=== PATIENT | female | born 1965 | race Caucasian/White ===

== ENCOUNTER 2019-10-10 14:55 | Emergency (ER) | payer OTHER, SELFPAY ==
[2019-10-10 15:14] VITALS: BP 180/93; PULSE 80; RESP 16; TEMP 36.7; O2SAT 97
--- NOTE | 2019-10-10 15:31 | ED.GIBLEED ---
HPI - GI Bleed General Chief complaint: GI Bleed Stated complaint: blood in stool Source: patient Mode of arrival: ambulatory Limitations: no limitations History of Present Illness HPI Narrative: Pt presents to ED with complaints of 3 bloody stools. She states that last night she had some cramping, became nauseated, and had diarrhea. She had several very loose stools. she states she didnt look at the stool last night, but today noticed blood. She has not had this before, and otherwise feels fine. NO lightheaddeness, dizzness, nearsyncopy. no abdominal pain. no vomiting. She does get crampy in abdomen right before a BM, but not significant pain at all. She has not had fevers. MD complaint: gross hematochezia Onset (ago): day(s) Pain Consistency: other (cramping when she has to use toliet, otherwise no pain) Severity: mild Exacerbating factors: none Associated symptoms: denies other symptoms Treatments Prior to Arrival: none Related Data Home Medications Medication Instructions Recorded Confirmed bupropion HCl 150 mg PO DAILY 10/10/19 10/10/19 escitalopram oxalate 10 mg PO DAILY 10/10/19 10/10/19 estradiol 1 mg PO DAILY 10/10/19 10/10/19 lisinopril 20 mg PO DAILY 10/10/19 10/10/19 norethindrone (contraceptive) 0.35 mg PO DAILY 10/10/19 10/10/19 [Melissa] simvastatin 20 mg PO DAILY 10/10/19 10/10/19 Allergies Allergy/AdvReac Type Severity Reaction Status Date / Time No Known Allergies Allergy Unverified 02/19/18 16:22 Review of Systems Review of Systems: All systems reviewed & are unremarkable except as noted in HPI and below Constitutional: Constitutional: Reports as per HPI and Reports no additional constitutional complaints Eyes: Eyes: Reports as per HPI and Reports no additional eye complaints ENT: Reports system reviewed and no additional complaints, except as documented Cardiovascular: Cardiovascular: Reports no additional cardiovascular complaints Respiratory: Respiratory: Reports no additional respiratory complaints Gastrointestinal: Gastrointestinal: Reports no additional gastrointestinal complaints Musculoskeletal: Musculoskeletal: Reports no additional musculoskeletal complaints Neurologic: Reports system reviewed and no additional complaints, except as documented Psychiatric: Psychiatric: Reports no additional psychiatric complaints Endocrine: Endocrine: Reports no additional endocrine complaints Hematologic/Lymphatic: Hematologic/Lymphatic: Reports no additional hematologic/lymphatic complaints Allergic/Immunologic: Allergic/Immunologic: Reports no additional allergic/immunologic complaints PMFSH Past Medical History Medical History (Updated 10/10/19 @ 16:59 by Linda Veloz MD) Hypertension Exam Const: General: no acute distress and alert Nutritional Appearance: well nourished and obese Orientation/consciousness: patient oriented x3 HENMT: Head: normal to inspection Mouth: Yes Normal oral and palatal mucosa present and Yes moist mucous membranes Teeth and gingiva: dentition normal Eyes: Conjunctivae: conjunctivae normal Pupils: Equal, round and reactive pupils present Neck: Neck: normal visual inspection Chest: Chest palpation & inspection: normal inspection of the chest Resp: Effort & Inspection: normal respiratory effort Auscultation: clear to auscultation bilaterally Cardio: Rate: regular rate Rhythm: regular rhythm GI: GI Palp: Yes Soft to palpation, No Tenderness to palpation present (GI), No Guarding due to palpation present (GI), No Rigid due to palpation, No Hernia present, No Palpable mass present and No Rebound tenderness present Percussion: Yes normal to percussion Auscultation: normal bowel sounds Other: rectal vault has scant bloody discharge, no palp hemmroids, no fissue. external exam nl : General: Yes no CVA tenderness Back/Spine/Pelvis: Back: no CVA tenderness Skin: General skin exam: normal color Rashes: no rashes Neuro: Ge
--- NOTE | 2019-10-10 15:47 | PC.NURSE ---
PT IS UNABLE TO GIVE STOOL SAMPLE AT THIS TIME
[2019-10-10 15:50] LABS: Basophils Absolute Auto 0.03 K/mm3 (0.00-0.10); Basophils Percent Auto 0.3 % (0.0-1.0); Eosinophils Absolute Auto 0.01 K/mm3 (0.02-0.50); Eosinophils Percent Auto 0.1 % (1.0-6.0); Hematocrit 38.8 % (35.0-49.0); Hemoglobin 12.7 g/dL (12.0-15.0); Immature Granulocyte Absolute 0.03 K/mm3 (0.00-0.00); Immature Granulocyte Percent A 0.3 % (0.0-0.0); Lymphocytes Absolute Auto 1.25 K/mm3 (1.10-4.50); Lymphocytes Percent Auto 13.9 % (18.0-42.0); Mean Corpuscular HGB Conc 32.7 g/dL (32.0-36.0); Mean Corpuscular Hemoglobin 29.7 pg (27.0-31.0); Mean Corpuscular Volume 90.7 fL (78.0-102.0); Mean Platelet Volume 9.1 fl (9.2-11.8); Monocytes Percent Auto 3.3 % (2.0-11.0); Neutrophils Absolute Auto 7.4 K/mm3 (1.7-7.2); Neutrophils Percent Auto 82.1 % (50.0-70.0); Platelet Count Result 288 K/mm3 (150-420); Red Blood Count 4.28 M/mm3 (4.20-5.40); Red Cell Distribution Width 12.8 % (11.6-14.4)
[2019-10-10 16:06] LABS: Occult Blood Positive (Negative)
[2019-10-10 16:12] LABS: Partial Thromboplastin Time 28.5 SEC (22.3-31.6); Prothrombin Time 10.2 Seconds (9.64-11.0)
[2019-10-10 16:13] LABS: Alanine Aminotransferase 17 U/L (14-59); Albumin Level 3.8 g/dL (3.4-5.0); Alkaline Phosphatase 71 U/L (46-116); Anion Gap 13.5 mmol/L (7-16); Aspartate Amino Transferase 12 U/L (15-37); Bilirubin Direct 0.1 mg/dL (0-0.2); Bilirubin,Total 0.3 mg/dL (0.00-1.00); Blood Urea Nitrogen 16 mg/dL (7-18); Calcium 8.6 mg/dL (8.5-10.1); Carbon Dioxide 27 mmol/L (21-32); Chloride 105 mmol/L (98-108); Estimated Glomerular Filt Rate > 60; Glucose 114 mg/dL (70-99); Lipase 68 U/L (73-393); Osmolality Calculated 296 mOsm/kg (285-295); Potassium 3.5 mmol/L (3.5-5.1); Sodium 142 mmol/L (136-145); Total Protein 7.7 g/dL (6.4-8.2)
[2019-10-10 17:28] VITALS: RESP 22
== END 2019-10-10 17:30 | disposition home or self-care (01) ==
PROVIDERS: Emergency Provider Emergency Medicine; PCP Physician Assistant
DX: K92.2 Gastrointestinal hemorrhage, unspecified (principal)
CPT/HCPCS: 36415; 80053; 82248; 82272; 83690; 85025; 85610; 85730; 87045; 87046; 87177; 87209; 87324; 87427; 99283; 99284

== ENCOUNTER 2021-06-03 19:57 | Emergency (ER) | payer BC, SELFPAY ==
[2021-06-03 20:00] VITALS: BP 144/76; PULSE 86; RESP 16; TEMP 36.8; O2SAT 99
--- NOTE | 2021-06-03 20:12 | ED.FALL ---
HPI - Fall General Chief Complaint: Wound/Laceration Stated Complaint: amb Time Seen by Provider: 06/03/21 20:00 Source: patient Mode of arrival: EMS Limitations: no limitations History of Present Illness HPI Narrative: 55-year-old woman brought to the emergency department today by EMS after she fell off a ladder, cutting her right arm. She states that she landed on her feet more less and has no other injuries. She lost her balance. She denies any preceding lightheadedness, chest pain, shortness of breath, palpitations. She does not recall her last tetanus shot. She denies any numbness, tingling or decreased range of motion in her right arm and hand. complaint: fall Onset (ago): hour(s) (1) Fall from: from height (distance) (6 ft) Place fall occurred: home Loss of consciousness: none Prolonged down time: no Symptoms prior to fall: none Context: other (Lost her balance while getting [employer] decorations down from a height.) Location of injury - extremities: Right: arm Severity: moderate Associated symptoms (after fall): denies Related Data Home Medications Medication Instructions Recorded Confirmed estradiol 1 mg PO DAILY 10/10/19 06/03/21 duloxetine 60 mg capsule,delayed 60 mg PO DAILY 08/20/20 release lisinopril 20 mg tablet 20 mg PO DAILY 08/20/20 06/03/21 Allergies Allergy/AdvReac Type Severity Reaction Status Date / Time Sulfa (Sulfonamide Allergy Unknown Unknown Verified 06/03/21 21:39 Antibiotics) Review of Systems Review of Systems: All systems reviewed & are unremarkable except as noted in HPI and below Constitutional: Constitutional: Denies chills and Denies fever(s) ENT: Denies nasal congestion and Denies sore throat Cardiovascular: Cardiovascular: Denies chest pain and Denies radiating jaw, neck or arm pain Respiratory: Respiratory: Denies cough and Denies dyspnea Gastrointestinal: Gastrointestinal: Denies diarrhea, Denies nausea and Denies vomiting Integumentary/Breasts: Skin/Breast: Denies pruritus, Denies erythema and Denies rash Neurologic: Denies vertigo, Denies dizziness, Denies syncope, Denies headache(s), Denies focal weakness and Denies weakness Hematologic/Lymphatic: Hematologic/Lymphatic: Denies easy bleeding and Denies easy bruising PMFSH Past Medical History Medical History (Updated 06/03/21 @ 21:46 by Uvaldo Beard MD) Anxiety and depression Hyperlipidemia Hypertension Vasculitis Surgical History Surgical History (Updated 06/03/21 @ 20:16 by Uvaldo Beard MD) History of pubovaginal sling Family History Family History Mother CHF (congestive heart failure) Hypertension Heart disease Grandparent Lung cancer Grandparent Alcoholism Hypertension Social History Social History Smoking status: Never smoker Alcohol intake: current Substance use: never Exam Const: General: healthy appearing and alert Orientation/consciousness: patient oriented x3 Limitations: no limitations Other: Mild acute distress. Resp: Effort & Inspection: normal respiratory effort and not labored Auscultation: clear to auscultation bilaterally, no rales, no rhonchi and no wheezes Cardio: Rate: regular rate Rhythm: regular rhythm Heart sounds: no murmurs Skin: General skin exam: normal color, no jaundice and no pallor Rashes: no rashes Other: 20 cm laceration across the volar right arm just distal to the antecubital fossa. Distal neurovascular exam is intact. Neuro: General: patient oriented x3, moves all extremities and CN's II-XI intact bilaterally Speech: normal speech Gait exam (Neuro): Normal gait present Extrem: General: normal to inspection and no clubbing, cyanosis or edema Psych: Appearance: grossly normal and well kempt Mental Status: mental status grossly normal Affect: normal affect Attitude: cooperative Thought content: Yes Normal th
[2021-06-03] MEDS: TETANUS,DIPHTHERIA,AC PERTUSSIS ADULT 0.5 ML (ADACEL) IM (20:21)
[2021-06-03] MEDS: LIDO 1%/EPINEPHRINE 1:100,000 20 ML VIAL INFILTRATE (21:19)
[2021-06-03] MEDS: NEOMYCIN/POLYMYXIN/BACITRACIN OINTMENT PACKET 4 PACKET TOPICAL (21:55)
[2021-06-03 22:08] VITALS: BP 146/84; PULSE 66; RESP 14; O2SAT 97
== END 2021-06-03 22:10 | disposition home or self-care (01) ==
PROVIDERS: Emergency Provider Emergency Medicine
DX: S41.111A Laceration without foreign body of right upper arm, initial encounter (principal); W11.XXXA Fall on and from ladder, initial encounter
CPT/HCPCS: 12005; 90471; 90715; 99283

== ENCOUNTER 2022-01-25 11:52 | Emergency (ER) | payer BC, SELFPAY ==
--- NOTE | 2022-01-25 11:57 | ED.FEMALEGU ---
HPI - Female Genitourinary General Chief complaint: Urogenital-Female Stated complaint: UTI SYMPTOMS Time Seen by Provider: 01/25/22 12:28 Source: patient and RN notes reviewed Mode of arrival: ambulatory Limitations: no limitations History of Present Illness HPI Narrative: 56-year-old female presents concern for ongoing urinary tract infection, she has been having burning, frequency. She reports symptoms started on Thursday, she had a virtual visit and was prescribed Macrobid. Reports she started taking that medication with very little relief to her symptoms. She reports the medication caused her to be nauseated, so she does not want to continue to take it, given that it is not helping her symptoms. She did not leave a urine sample at the time of the prescription and did not get a culture. She denies abdominal pain, back pain, bodies, chills, sweats, fever MD elicited complaint: UTI Related Data Home Medications Medication Instructions Recorded Confirmed estradiol 1 mg tablet 1 mg PO DAILY 10/10/19 06/03/21 duloxetine 60 mg capsule,delayed 60 mg PO DAILY 08/20/20 06/03/21 release lisinopril 20 mg tablet 20 mg PO DAILY 08/20/20 06/03/21 azathioprine 50 mg tablet mg 01/25/22 Allergies Allergy/AdvReac Type Severity Reaction Status Date / Time Sulfa (Sulfonamide Allergy Unknown Unknown Verified 01/25/22 12:06 Antibiotics) Review of Systems Review of Systems: CONSTITUTIONAL: Denies malaise, chills, sweats, or fever. CARDIOVASCULAR: Denies chest pain, palpitations, or edema. RESPIRATORY: Denies cough or dyspnea. GASTROINTESTINAL: Denies abdominal pain, nausea, vomiting, diarrhea GENITOURINARY: Reports dysuria, frequency. Denies urgency, suprapubic pressure. Denies flank pain or hematuria. SKIN: Denies rash or itching. MUSCULOSKELETAL: Denies back pain or myalgia. All systems reviewed & are unremarkable except as noted in HPI and below PMFSH Past Medical History Medical History (Updated 01/25/22 @ 12:33 by Altagracia Jean-Baptiste NP) Anxiety and depression Hyperlipidemia Hypertension Vasculitis Surgical History Surgical History (Updated 06/03/21 @ 20:16 by Uvaldo Beard MD) History of pubovaginal sling Family History Family History Mother CHF (congestive heart failure) Hypertension Heart disease Grandparent Lung cancer Grandparent Alcoholism Hypertension Social History Social History Smoking status: Never smoker Alcohol intake: current Substance use: never Comments At time of signature, agree with nursing past medical, surgical, social and family history. There is no relevant family history pertinent to the presenting complaint Exam Narrative: GENERAL: Well-appearing, well-nourished, and in no acute distress. HEAD: Normocephalic. EYES: PERRLA, conjunctivae clear. NECK: Supple. No lymphadenopathy CHEST: Clear to auscultation. No respiratory distress. HEART: Regular rate and rhythm. ABDOMEN: Soft, nontender upon palpation, nondistended, normal active bowel sounds, no palpable or pulsatile masses, no guarding. No CVA tenderness SKIN: Warm, dry, no rash. NEURO: Alert and oriented x3. PSYCH: Normal mood and affect Course Course Emergency Course: Patient is aware of diagnosis, understands and agrees to treatment plan. Anticipatory guidance given. Patient agrees to follow-up as directed and is aware of reasons to seek care at the emergency department. Portions of this record may have been created with voice recognition software Level of Care: Express Care Visit Vital Signs Vital signs: Reviewed. MDM - Female Genitourinary MDM Narrative Medical decision making narrative: Exam findings and UA show no acute concerns or changes; patient is non-toxic appearing and is in no distress. Patient is appropriate for outpatient treatment and follow-up. Differential Diagnosis Diff
[2022-01-25 12:02] VITALS: BP 127/89; PULSE 68; RESP 16; TEMP 37.4; O2SAT 100
== END 2022-01-25 12:46 | disposition home or self-care (01) ==
PROVIDERS: Emergency Provider Nurse Practitioner; PCP Physician Assistant
DX: R30.0 Dysuria (principal); R35.0 Frequency of micturition; E78.5 Hyperlipidemia, unspecified; I10 Essential (primary) hypertension
CPT/HCPCS: 81003; 87086; 99213; G0463

== ENCOUNTER 2023-12-06 18:10 | Emergency (ER) | payer OTHER, SELFPAY ==
[2023-12-06 18:10] VITALS: BP 123/80; PULSE 87; RESP 16; TEMP 36.1; O2SAT 95
--- NOTE | 2023-12-06 18:22 | ED.GENADULT ---
HPI - General Adult General Chief complaint: Wound/Laceration Stated complaint: left thumb laceration Source: patient Mode of arrival: ambulatory Limitations: no limitations History of Present Illness HPI narrative: 58-year-old white female cut her left thumb a flute grinder at home on the dorsal aspect of her proximal phalanx of her non dominant left thumb causing 2 cm laceration. Not lost any sensation or function in the thumb or hand. last tetanus shot was greater than 5 years ago she was given a Tdap in the ED. otherwise no other injuries denies any cough fever sore throat runny nose problems eating or drinking walking talking seeing or hearing nausea vomiting diarrhea other bleeding or bruising lumps or bumps or swelling or any other injuries. Related Data Home Medications Medication Instructions Recorded Confirmed duloxetine 60 mg capsule,delayed 120 mg PO DAILY 08/20/20 12/06/23 release lisinopril 20 mg tablet 20 mg PO DAILY 08/20/20 12/06/23 azathioprine 50 mg tablet 100 mg PO BID 01/25/22 12/06/23 Allergies Allergy/AdvReac Type Severity Reaction Status Date / Time Sulfa (Sulfonamide Allergy Unknown Unknown Verified 12/06/23 18:21 Antibiotics) Review of Systems Review of Systems: All systems reviewed & are unremarkable except as noted in HPI and below PMFSH Past Medical History Medical History (Updated 12/06/23 @ 19:12 by Johnathan Tom MD) Anxiety and depression Hyperlipidemia Hypertension Vasculitis Surgical History Surgical History (Updated 06/03/21 @ 20:16 by Uvaldo BeardMD) History of pubovaginal sling Family History Family History Mother CHF (congestive heart failure) Hypertension Heart disease Grandparent Lung cancer Grandparent Alcoholism Hypertension Social History Social History Smoking status: Never smoker Alcohol intake: current Substance use: never Exam Narrative: White female no apparent distress. ?Head:? Normocephalic atraumatic.? Eyes conjunctiva pink sclera nonicteric.? Ears externally normal.? ? Extremities: Left thumb has a dorsal laceration over the proximal phalanx 2 cm superficial no tendon identified no tendon injury. She has got good strong dorsiflexion and palmar flexion the left thumb. Capillary refills normal sensation light touch is normal motor strength is normal.? left thumb has an old subungual hematoma under the nail bed which is nontender. Neurological she is alert and oriented x4 motor and sensory grossly intact.? Skin is warm and dry without lesions. Course Vital Signs Vital signs: Vital Signs Temperature 36.1 C L 12/06/23 18:10 Pulse Rate 87 12/06/23 18:10 Respiratory Rate 16 12/06/23 18:10 Blood Pressure 123/80 12/06/23 18:10 Pulse Oximetry 95 12/06/23 18:10 Oxygen Delivery Room Air 12/06/23 18:10 Temperature 36.1 C L 12/06/23 18:10 Pulse Rate 87 12/06/23 18:10 Respiratory Rate 16 12/06/23 18:10 Blood Pressure 123/80 12/06/23 18:10 Pulse Oximetry 95 12/06/23 18:10 Oxygen Delivery Room Air 12/06/23 18:10 Medical Decision Making [facility] Narrative Medical decision making narrative: ? Patient placed in room: 7 ? History and physical was performed. Independent Historian: patient External Source Review: Differential Dx includes but not limited to: laceration foreign body Medications were Reviewed: home meds reviewed Medications given: lidocaine 1% 5 mL Augmentin 875 Procedure Name: Laceration Repair Indication: Reduce risk of infection Location: __Left thumb laceration 3 cm____ Pre-Procedure Diagnosis: Laceration Post-Procedure Diagnosis: Repaired Laceration Informed consent was obtained before procedure started. PROCEDURE: The appropriate timeout was taken. The area was prepped and draped in the usual sterile fashion. Loca
[2023-12-06] MEDS: TETANUS,DIPHTHERIA,AC PERTUSSIS ADULT 0.5 ML (ADACEL) IM (18:30)
[2023-12-06] MEDS: LIDOCAINE HCL 1% LOCAL INJ 10 ML VIAL 6 ML INFILTRATE (18:31)
[2023-12-06] MEDS: AMOXICILLIN/CLAVULANATE K 875-125 MG TAB 1 TABLET PO (19:05)
[2023-12-06 19:13] VITALS: BP 124/78; PULSE 84; RESP 20; TEMP 36.7; O2SAT 98
== END 2023-12-06 19:14 | disposition home or self-care (01) ==
PROVIDERS: Emergency Provider Emergency Medicine; PCP Physician Assistant
DX: S61.012A Laceration without foreign body of left thumb without damage to nail, initial encounter (principal); E78.5 Hyperlipidemia, unspecified; I10 Essential (primary) hypertension; F41.9 Anxiety disorder, unspecified; F32.A Depression, unspecified; Z79.899 Other long term (current) drug therapy; Z23 Encounter for immunization; W27.8XXA Contact with other nonpowered hand tool, initial encounter
CPT/HCPCS: 12001; 90471; 90715; 99283; A9270